=== PATIENT | female | born 1975 | race Two or more races ===

== ENCOUNTER 2019-05-13 11:48 | Emergency (ER) | payer OTHER ==
[~2019-05-13] VITALS: Ht 165.1 cm; Wt 83.9 kg
[2019-05-13] MEDS ORDERED: PRENA1 TRUE CO1 EACH (12:56)
== END 2019-05-13 18:27 | disposition home or self-care (01) ==
LOC: ER 11:48 → EDBD 13:38 → ER 13:38
DX: O26.851 Spotting complicating pregnancy, first trimester (principal); O23.31 Infections of other parts of urinary tract in pregnancy, first trimester; Z34.01 Encounter for supervision of normal first pregnancy, first trimester

== ENCOUNTER 2019-05-22 07:46 | Outpatient (CLI) | payer OTHER ==
[~2019-05-22 07:46] MED LIST: PRENA1 TRUE CO1 EACH
== END 2019-05-22 07:57 | disposition home or self-care (01) ==
LOC: LAB 07:46 → EDBD 07:46 → LAB 07:57
DX: Z34.00 Encounter for supervision of normal first pregnancy, unspecified trimester (principal)

== ENCOUNTER 2019-06-06 08:22 | Day surgery (SDC) | payer OTHER ==
[~2019-06-06] VITALS: Ht 165.1 cm; Wt 85.7 kg
== END 2019-06-06 17:20 | disposition home or self-care (01) ==
LOC: ER 08:22 → CIR.AMB 10:46
DX: O02.1 Missed abortion (principal)

== ENCOUNTER 2020-08-02 18:49 | Inpatient (IN) | payer OTHER ==
[~2020-08-02] VITALS: Ht 165.1 cm; Wt 95.3 kg
[2020-08-02] MEDS ORDERED: METHYLDOPA250 MG PO (20:02)
[2020-08-02] MEDS ORDERED: ECOTRIN81 MG PO (20:02)
[2020-08-02] MEDS ORDERED: PRENATAL CAPLE1 EAC1 PO (20:03)
== END 2020-08-04 13:50 | disposition home or self-care (01) | DRG 833 ==
LOC: LDR 18:49
PROVIDERS: ADMIT Obstetrics & Gynecology Obstetrics; ATTEND Obstetrics & Gynecology Obstetrics
PROC: 4A1HXFZ Monitoring of Products of Conception, Cardiac Rhythm, External Approach (ICD-10-PCS; principal; 2020-08-02)
PROC: BY4FZZZ Ultrasonography of Third Trimester, Single Fetus (ICD-10-PCS; 2020-08-02)
DX: O13.3 Gestational [pregnancy-induced] hypertension without significant proteinuria, third trimester (principal); Z3A.36 36 weeks gestation of pregnancy; Z20.822 Contact with and (suspected) exposure to COVID-19

== ENCOUNTER 2020-08-10 10:45 | Inpatient (IN) | payer OTHER ==
[~2020-08-10] VITALS: Ht 165.1 cm; Wt 95.7 kg
[~2020-08-10 10:45] MED LIST changes: +ECOTRIN81 MG PO; +METHYLDOPA250 MG PO; +PRENATAL CAPLE1 EAC1 PO
[2020-08-10] MEDS ORDERED: ALDOMET250 MG/5 M PO ×2 (10:59→11:00)
[2020-08-12] MEDS ORDERED: METHYLDOPA250 MG (15:14)
== END 2020-08-13 13:41 | disposition home or self-care (01) | DRG 788 ==
LOC: LDR 10:45 → OB/GYN 10:45 → O/R 15:00 → OB/GYN 16:01
PROVIDERS: ADMIT Obstetrics & Gynecology Obstetrics; ATTEND Obstetrics & Gynecology Obstetrics
PROC: 4A1HXFZ Monitoring of Products of Conception, Cardiac Rhythm, External Approach (ICD-10-PCS; 2020-08-10)
PROC: 10D00Z1 Extraction of Products of Conception, Low, Open Approach (ICD-10-PCS; principal; 2020-08-10 13:00)
DX: O65.5 Obstructed labor due to abnormality of maternal pelvic organs (principal); O34.29 Maternal care due to uterine scar from other previous surgery; O13.4 Gestational [pregnancy-induced] hypertension without significant proteinuria, complicating childbirth; Z3A.37 37 weeks gestation of pregnancy; Z37.0 Single live birth; Z20.822 Contact with and (suspected) exposure to COVID-19